=== PATIENT | male | born 1975 | race Caucasian/White ===

== ENCOUNTER 2017-11-23 20:08 | Emergency (ER) | payer BC ==
[~2017-11-23] VITALS: Ht 180.3 cm; Wt 65.9 kg
[2017-11-23 20:12] VITALS: TEMP 98
[2017-11-23 20:57] LABS: BASO # 0.1 (0.0-0.2); BASO % 0.5 % (0.0-2.0); GRAN # 8.7 (1.4-6.5); GRAN % 86.1 % (42.2-75.2); HEMATOCRIT 48.5 % (42.0-52.0); HEMOGLOBIN 17.1 g/dl (13.5-18.0); LYMPH # 0.6 (1.2-3.4); MEAN CELL VOLUME 92 fl (80.0-100.0); MEAN CORPUSCULAR HEMOGLOBIN 32 pg (27.0-31.0); MEAN CORPUSCULAR HGB CONC 35 g/dl (33.0-37.0); MEAN PLATELET VOLUME 10.6 fl (7.4-10.4); MONO # 0.7 (0.1-0.6); PLATELET COUNT 103 K/mm3 (130-400); RED BLOOD COUNT 5.27 M/mm3 (4.20-5.60); REDCELL DISTRIBUTION WIDTH-CV 12.1 % (11.5-14.5)
[2017-11-23 21:10] LABS: ALBUMIN 4.3 gm/dL (3.5-5.0); BILIRUBIN,TOTAL 2.1 mg/dL (0.0-1.0); C-REACTIVE PROTEIN 3.9 mg/dL (0.0-0.9); CALCIUM 9.8 mg/dL (8.4-10.2); CREATININE, serum 0.49 mg/dL (0.66-1.25); TOTAL PROTEIN 8.1 gm/dL (6.4-8.2)
[2017-11-23 21:48] LABS: COLLECTION METHOD CLEAN CATCH
[2017-11-23 21:57] LABS: MUCOUS Present /lpf; PH 6 (5-8); SQUAMOUS EPITHELIAL 0-2 /hpf; URINE APPEARANCE Hazy; URINE BACTERIA None Seen /hpf; URINE BILIRUBIN Negative (NEGATIVE); URINE BLOOD 1+ (NEGATIVE); URINE COLOR Amber; URINE GLUCOSE 1+ (NEGATIVE); URINE KETONE 1+ (NEGATIVE); URINE LEUKOCYTE ESTERASE Negative (NEGATIVE); URINE NITRATE Negative (NEGATIVE); URINE PROTEIN(semi-quant) 3+ (NEGATIVE)
[2017-11-23 23:54] VITALS: BP 137/94; PULSE 103
== END 2017-11-23 23:39 | disposition short-term general hospital (02) ==
LOC: COL.ER 20:08
PROVIDERS: Family Medicine
DX: K85.90 Acute pancreatitis without necrosis or infection, unspecified (principal)
CPT/HCPCS: J1170; J2060; J2405; J7030; J7120

== ENCOUNTER 2019-07-12 03:46 | Inpatient (IN) | payer OTHER ==
[~2019-07-12] VITALS: Ht 182.9 cm; Wt 66.5 kg
[2019-07-12 04:19] LABS: BASO # 0.1 (0.0-0.2); BASO % 0.4 % (0.0-2.0); GRAN # 11.8 (1.4-6.5); GRAN % 85.4 % (42.2-75.2); HEMATOCRIT 46.5 % (42.0-52.0); HEMOGLOBIN 15.5 g/dl (13.5-18.0); LYMPH # 0.8 (1.2-3.4); LYMPH % 5.7 % (20.0-51.0); MEAN CELL VOLUME 96 fl (80.0-100.0); MEAN CORPUSCULAR HEMOGLOBIN 32 pg (27.0-31.0); MEAN CORPUSCULAR HGB CONC 33 g/dl (33.0-37.0); MEAN PLATELET VOLUME 10.8 fl (7.4-10.4); MONO # 1.1 (0.1-0.6); PLATELET COUNT 196 K/mm3 (130-400); RED BLOOD COUNT 4.83 M/mm3 (4.20-5.60); REDCELL DISTRIBUTION WIDTH-CV 12.1 % (11.5-14.5)
[2019-07-12 04:27] LABS: ALBUMIN 4.9 gm/dL (3.5-5.0); BILIRUBIN,TOTAL 1.7 mg/dL (0.0-1.0); CALCIUM 9.6 mg/dL (8.4-10.2); CREATININE, serum 0.41 (0.66-1.25); POTASSIUM 3.7 mmol/L (3.4-5.0); TOTAL PROTEIN 8.1 gm/dL (6.4-8.2)
--- NOTE | 2019-07-12 08:31 | NUR ---
Pt arrived to room 352, he is A/O x4. He is accompanied by his father. Pt currently unable to get comfortable d/t pain 09/07, pt reports pain has improved but has been unrelieved with the dialuadid. Pt endorses nausea at this time, no emesis. Pt requesting to drink water, POC discussed with patient. He will remain NPO. IVF started into LFA. No other needs at this time. Call light within reach. Will continue to monitor.
[2019-07-12 09:54] VITALS: BP 159/98; PULSE 56; TEMP 97.6
--- NOTE | 2019-07-12 12:07 | NUR ---
Initial visit; Patient and family member thanked [facility] Specialist for looking in on him and offering spiritual carel
[2019-07-12 12:44] VITALS: BP 142/83; PULSE 72; TEMP 98.6
[2019-07-12 15:59] VITALS: BP 152/97; PULSE 84; TEMP 98.7
--- NOTE | 2019-07-12 16:41 | NUR ---
ELIDA met with the patient to complete initial intake. The patient lives in [place] with his parents. The patient denies DME usage and reports independence with ADLs. The patient does not have a PCP and was not interested in list of [facility] providers. The [place] [facility] The patient does not have advanced directives in the EMR and was not interested in a DPOA-HC form. The patient plans to return home at discharge. There are no additional needs at this time.
--- NOTE | 2019-07-12 18:28 | NUR ---
Pt had uneventful day. Continued to report pain that remained "about the same" with doses of dilaudid. No nausea or vomitting reported. IVF infusing without complications. No needs at this time. Call light within reach.
--- NOTE | 2019-07-12 19:20 | NUR ---
Received report from Meri. Seen patient awake, lying on bed. Patient states he has pain on left side with pain score of 7/10. PRN Dilaudid to be given. With IVF at left forearm infusing NS at 125ml/hr. Call light within reach.
[2019-07-12 19:39] VITALS: BP 145/95; PULSE 71; TEMP 99
[2019-07-12 23:19] VITALS: BP 147/97; PULSE 79; TEMP 98.8
[2019-07-13 03:44] VITALS: BP 136/96; PULSE 80; TEMP 98.9
--- NOTE | 2019-07-13 05:46 | NUR ---
Patient had an uneventful day. Still reports pain in his left upper quadrant. Dilaudid PRN given. Will endorse to day shift nurse.
[2019-07-13 07:21] LABS: BASO % 0.3 % (0.0-2.0); EOS % 0.3 % (0-4.0); GRAN # 8.5 (1.4-6.5); HEMATOCRIT 43.5 % (42.0-52.0); HEMOGLOBIN 14.4 g/dl (13.5-18.0); LYMPH # 1.2 (1.2-3.4); LYMPH % 10.4 % (20.0-51.0); MEAN CELL VOLUME 95 fl (80.0-100.0); MEAN CORPUSCULAR HEMOGLOBIN 32 pg (27.0-31.0); MEAN CORPUSCULAR HGB CONC 33 g/dl (33.0-37.0); MEAN PLATELET VOLUME 11.5 fl (7.4-10.4); MONO # 1.3 (0.1-0.6); MONO % 11.3 % (1.7-9.3); PLATELET COUNT 164 K/mm3 (130-400); RED BLOOD COUNT 4.57 M/mm3 (4.20-5.60); REDCELL DISTRIBUTION WIDTH-CV 12.4 % (11.5-14.5)
[2019-07-13 07:31] LABS: ALBUMIN 3.8 gm/dL (3.5-5.0); BILIRUBIN,TOTAL 1.2 mg/dL (0.0-1.0); CALCIUM 8.6 mg/dL (8.4-10.2); CHOLESTEROL RISK RATIO 2.4; CREATININE, serum 0.41 (0.66-1.25); POTASSIUM 3.4 mmol/L (3.4-5.0); TOTAL PROTEIN 6.6 gm/dL (6.4-8.2)
[2019-07-13 07:38] VITALS: BP 153/98; PULSE 81; TEMP 99.1
[2019-07-13 11:41] VITALS: BP 133/85; PULSE 74; TEMP 98.2
[2019-07-13 17:13] VITALS: BP 135/97; PULSE 82; TEMP 98.1
--- NOTE | 2019-07-13 18:40 | NUR ---
Received report from Meri. Seen patient awake, lying on bed. Patient states his pain right now is bearable. He is about to take his dinner. With ongoing IVF NS 1 liter at 125ml/hr. Will continue to monitor.
--- NOTE | 2019-07-13 19:04 | NUR ---
Patient is Alert and Oriented. Diet advanced to Clear liquid from NPO, diet was tolerated well. Pain is resting in bed at the moment.
[2019-07-13 19:11] VITALS: BP 133/92; PULSE 86; TEMP 99.6
--- NOTE | 2019-07-13 19:23 | NUR ---
Pt states he tolerated clear liquids without issue. No N/V. He states pain did not increase after eating. IVF infusing without complications. No needs a tthis time. Call light within reach.
[2019-07-13 23:02] VITALS: BP 141/99; PULSE 73; TEMP 99.7
[2019-07-14 03:09] VITALS: BP 152/97; PULSE 87; TEMP 99.4
[2019-07-14 06:03] LABS: BASO % 0.3 % (0.0-2.0); EOS # 0.1 (0.0-0.7); EOS % 1.2 % (0-4.0); GRAN # 5.5 (1.4-6.5); GRAN % 63.7 % (42.2-75.2); HEMATOCRIT 41.5 % (42.0-52.0); HEMOGLOBIN 13.7 g/dl (13.5-18.0); LYMPH # 1.7 (1.2-3.4); LYMPH % 19.4 % (20.0-51.0); MEAN CELL VOLUME 96 fl (80.0-100.0); MEAN CORPUSCULAR HEMOGLOBIN 32 pg (27.0-31.0); MEAN CORPUSCULAR HGB CONC 33 g/dl (33.0-37.0); MEAN PLATELET VOLUME 11.2 fl (7.4-10.4); MONO # 1.3 (0.1-0.6); MONO % 14.8 % (1.7-9.3); PLATELET COUNT 162 K/mm3 (130-400); RED BLOOD COUNT 4.33 M/mm3 (4.20-5.60); REDCELL DISTRIBUTION WIDTH-CV 12.1 % (11.5-14.5)
[2019-07-14 06:12] LABS: ALBUMIN 3.6 gm/dL (3.5-5.0); BILIRUBIN,TOTAL 1.1 mg/dL (0.0-1.0); CALCIUM 8.4 mg/dL (8.4-10.2); CREATININE, serum 0.48 (0.66-1.25); TOTAL PROTEIN 6.4 gm/dL (6.4-8.2)
--- NOTE | 2019-07-14 06:28 | NUR ---
Patient had mild to moderate pain with the highest of 6/10. Tried oral Roxicodone for pain instead of Dilaudid. No other complains made for tonight aside from his pain. Will endorse to day shift nurse.
[2019-07-14 09:20] VITALS: BP 143/108; PULSE 86; TEMP 99
--- NOTE | 2019-07-14 09:39 | NUR ---
Pt assessment completed and charted. Medications administered per JUL. Pt requesting pain medication. Received PRN [place] per JUL. Pt has LFA IV w/ NS at 125ml/hr and placed on potassium protocol. 10MEQ bag running w/o complications. Pt rating LQ abdominal pain at 4-5/10. Denies SOB, N/V/D. Tolerating clear liquids well. Pt on room air, breathing is even and unlabored. HR RRR. No other concerns at this time.
[2019-07-14] MEDS ORDERED: ZOFRAN 4MG T4 MG/TAB PO (10:14)
[2019-07-14] MEDS ORDERED: ROXICODONE 55 MG/TAB PO (10:15)
[2019-07-14] MEDS ORDERED: K-TAB20 PO (10:16)
[2019-07-14 11:28] VITALS: BP 140/98; PULSE 74; TEMP 99.1
--- NOTE | 2019-07-14 11:47 | NUR ---
Pt discharge instructions discussed and reviewed with patient who verbalized understanding. LFA IV dc'd w/ catheter tip intact and no complications. Pt denies further needs or questions. Pt escorted out via WC by KRYSTIN Moses.
== END 2019-07-14 11:55 | disposition home or self-care (01) | DRG 440 ==
LOC: COL.ER 03:46 → MEDICAL 05:10
PROVIDERS: Emergency Medicine; Physician Assistant; ADMIT Hospitalist
DX: K85.90 Acute pancreatitis without necrosis or infection, unspecified (principal); F17.210 Nicotine dependence, cigarettes, uncomplicated
CPT/HCPCS: OP; 99222-AI; 99232-AI; 99238; C9113; J1170; J1650; J2405; J3010; J3480; J7030; Q9967

== ENCOUNTER 2019-11-14 18:31 | Inpatient (IN) | payer OTHER ==
[~2019-11-14] VITALS: Ht 182.9 cm; Wt 66.9 kg
[~2019-11-14 18:31] MED LIST: K-TAB20 PO; ROXICODONE 55 MG/TAB PO; ZOFRAN 4MG T4 MG/TAB PO
[2019-11-14 19:07] LABS: BASO # 0.1 (0.0-0.2); BASO % 0.6 % (0.0-2.0); EOS % 0.2 % (0-4.0); GRAN # 8.8 (1.4-6.5); GRAN % 75.2 % (42.2-75.2); HEMATOCRIT 45.6 % (42.0-52.0); HEMOGLOBIN 15.6 g/dl (13.5-18.0); LYMPH # 1.3 (1.2-3.4); MEAN CELL VOLUME 95 fl (80.0-100.0); MEAN CORPUSCULAR HEMOGLOBIN 33 pg (27.0-31.0); MEAN CORPUSCULAR HGB CONC 34 g/dl (33.0-37.0); MONO # 1.5 (0.1-0.6); MONO % 12.7 % (1.7-9.3); PLATELET COUNT 223 K/mm3 (130-400); RED BLOOD COUNT 4.78 M/mm3 (4.20-5.60); REDCELL DISTRIBUTION WIDTH-CV 11.9 % (11.5-14.5)
[2019-11-14 19:19] LABS: ALANINE AMINOTRANSFERASE 42 U/L (4-49); ALBUMIN 4.6 gm/dL (3.5-5.0); ALKALINE PHOSPHATASE 108 U/L (50-136); ANION GAP 15 mmol/L (7-16); AST,SGOT 72 U/L (15-37); BILIRUBIN,TOTAL 1.7 mg/dL (0.0-1.0); BLOOD UREA NITROGEN 10 mg/dL (9-20); CALCIUM 9.4 mg/dL (8.4-10.2); CARBON DIOXIDE 23 mmol/L (22-30); CHLORIDE 97 mmol/L (98-107); CREATININE, serum 0.54 (0.66-1.25); GLUCOSE 114 mg/dL (74-106); LIPASE 1936 U/L (23-300); POTASSIUM 3.7 mmol/L (3.4-5.0); SODIUM 134 mmol/L (137-145); TOTAL PROTEIN 7.8 gm/dL (6.4-8.2)
[2019-11-14 19:24] LABS: C-REACTIVE PROTEIN < 0.5 mg/dL (0.0-0.9)
--- NOTE | 2019-11-14 21:50 | NUR ---
Received patient via wheelchair from ER. He is alert and oriented. With INT on left AC. Patient reports pain on his abdomen on left upper quadrant and it radiates on his back. He was given Dilaudid in the ER at 2123H and states pain at 6/10. Informed patient he has Dilaudid every 2 hours PRN for pain and next dose can be given at 2323H. With INT on right AC. Instructed patient he's on NPO. Assessment and Med rec done.
[2019-11-14 22:12] VITALS: BP 154/87; PULSE 75; TEMP 98.2
[2019-11-14] MEDS ORDERED: ADVIL200 MG PO (22:28)
[2019-11-14 23:21] VITALS: BP 138/76; PULSE 66; TEMP 98.3
--- NOTE | 2019-11-14 23:30 | NUR ---
Patient verbalizes if he can have Nicotine patch. Called Dr. Persaud and he ordered for Nicotine patch 14mg. Patient's pain right now is 7/10. Dilaudid PRN given.
--- NOTE | 2019-11-15 01:41 | NUR ---
Patient complains of pain on his left side abdomen, 8/10. He said he feels like Dilaudid is not working and he is teary eyed because of pain. He asked if we can increase the dosage or frequency. Called Dr. Persaud and he ordered Dilaudid 1mg Q2 PRN. Informed patient and he was satisfied with that.
[2019-11-15 03:53] VITALS: BP 153/91; PULSE 82; TEMP 98.3
--- NOTE | 2019-11-15 06:12 | NUR ---
Patient still has a constant pain. Dilaudid dosage was increased and patient requesting for it every 2 hourse. Maintained on NPO. Will endorse to day shift nurse.
[2019-11-15 07:24] VITALS: BP 146/88; PULSE 77; TEMP 98.3
[2019-11-15 07:39] LABS: HEMATOCRIT 43.9 % (42.0-52.0); HEMOGLOBIN 14.9 g/dl (13.5-18.0); MEAN CELL VOLUME 95 fl (80.0-100.0); MEAN CORPUSCULAR HEMOGLOBIN 32 pg (27.0-31.0); MEAN CORPUSCULAR HGB CONC 34 g/dl (33.0-37.0); MEAN PLATELET VOLUME 10.5 fl (7.4-10.4); PLATELET COUNT 196 K/mm3 (130-400); RED BLOOD COUNT 4.62 M/mm3 (4.20-5.60)
[2019-11-15 07:55] LABS: CALCIUM 8.9 mg/dL (8.4-10.2); CREATININE, serum 0.41 (0.66-1.25); POTASSIUM 4.3 mmol/L (3.4-5.0)
[2019-11-15 08:32] LABS: BAND 16 % (0-10); BASOPHIL 2 % (0-2); EOSINOPHIL 1 % (0-4); LYMPHOCYTE 2 % (20.0-51.0); NEUTROPHILS 73 % (42.0-75.2); PLATELET ESTIMATE NORMAL (NORMAL)
--- NOTE | 2019-11-15 10:45 | NUR ---
ELIDA met with the patient to complete initial intake. The patient lives in [place] with his father, Samson. The patient denies DME use and is independent with ADLs. The patient was seen at [facility] in the past and was agreeable to set up an appointment for a follow-up there. The patient receives medications from [facility] with no difficulties. The patient does not have a DPOA-HC and was not interested a form. The patient plans to return home at discharge. ELIDA contacted [facility] to set up appointment. The appointment is Wednesday, 11/20 at 1500. ELIDA faxed HNP and labs to [facility]. The patient is self-pay. Per Shabnam Fall with finance, the patient's father is assisting with providing information to complete the financial assistance application. There are no additional needs at this time.
[2019-11-15 11:41] VITALS: BP 140/92; PULSE 84; TEMP 98.3
--- NOTE | 2019-11-15 11:54 | NUR ---
First visit from the chapalin. No needs right now.
[2019-11-15 15:43] VITALS: BP 132/85; PULSE 85; TEMP 98.3
[2019-11-15 19:28] VITALS: BP 144/90; PULSE 89; TEMP 99.1
--- NOTE | 2019-11-15 20:00 | NUR ---
Received report from Mariposa. Seen patient awake, sitting in bed. He requested for Dilaudid, reporting pain of 6/10. He states he vomitted as well after eating his dinner. Zofran was given. Instructed patient we need sample of urine for urinalysis and to call us once he urinated already.
[2019-11-15 23:09] VITALS: BP 125/82; PULSE 81; TEMP 98.7
[2019-11-16 00:02] LABS: COLLECTION METHOD CLEAN CATCH
[2019-11-16 00:12] LABS: MUCOUS Present /lpf; PH 7 (5-8); SQUAMOUS EPITHELIAL None Seen /hpf; URINE APPEARANCE Clear; URINE BACTERIA None Seen /hpf; URINE BILIRUBIN Negative (NEGATIVE); URINE BLOOD 1+ (NEGATIVE); URINE COLOR Yellow; URINE GLUCOSE Negative (NEGATIVE); URINE KETONE 1+ (NEGATIVE); URINE LEUKOCYTE ESTERASE Negative (NEGATIVE); URINE NITRATE Negative (NEGATIVE); URINE PROTEIN(semi-quant) Negative (NEGATIVE); URINE RBC 0-2 /hpf
[2019-11-16 04:31] VITALS: BP 124/75; PULSE 79; TEMP 98.7
--- NOTE | 2019-11-16 05:54 | NUR ---
Patient has been asking pain medicine less frequent. He states his pain now is much more tolerable. Latest pain score is 5/10. He requested for Dilaudid. No other complains made aside from his left side abdomen pain. Will endorse to day shift nurse.
[2019-11-16 07:03] LABS: BASO % 0.3 % (0.0-2.0); EOS # 0.4 (0.0-0.7); EOS % 3.9 % (0-4.0); GRAN # 5.8 (1.4-6.5); GRAN % 62.3 % (42.2-75.2); HEMATOCRIT 40.7 % (42.0-52.0); HEMOGLOBIN 13.7 g/dl (13.5-18.0); LYMPH # 1.7 (1.2-3.4); LYMPH % 18.6 % (20.0-51.0); MEAN CELL VOLUME 96 fl (80.0-100.0); MEAN CORPUSCULAR HEMOGLOBIN 33 pg (27.0-31.0); MEAN CORPUSCULAR HGB CONC 34 g/dl (33.0-37.0); MEAN PLATELET VOLUME 11.4 fl (7.4-10.4); MONO # 1.3 (0.1-0.6); MONO % 14.5 % (1.7-9.3); PLATELET COUNT 158 K/mm3 (130-400); RED BLOOD COUNT 4.22 M/mm3 (4.20-5.60)
[2019-11-16 07:09] LABS: ALBUMIN 3.2 gm/dL (3.5-5.0); BILIRUBIN,TOTAL 1.1 mg/dL (0.0-1.0); CALCIUM 8.6 mg/dL (8.4-10.2); CREATININE, serum 0.47 (0.66-1.25); POTASSIUM 3.1 mmol/L (3.4-5.0); TOTAL PROTEIN 6.1 gm/dL (6.4-8.2)
[2019-11-16 07:23] VITALS: BP 125/76; PULSE 82; TEMP 98.1
--- NOTE | 2019-11-16 07:51 | NUR ---
Pt awake and alert this morning upon entry, no C/O pain at this time, talkative and appropriate, shift assessments complete, left Pt call light in reach, bed in lowest position.
--- NOTE | 2019-11-16 09:51 | NUR ---
SW attended clinical rounds with the team. SW will continue to follow to ensure a safe discharge.
[2019-11-16 11:24] VITALS: BP 125/78; PULSE 81; TEMP 98.5
[2019-11-16 16:08] VITALS: BP 132/82; PULSE 85; TEMP 98.3
--- NOTE | 2019-11-16 18:33 | NUR ---
Pt resting in the room today, had some C/O pain earlier in the day and medications were given for relief with good results, Pt tolerating the change in diet from clear liquids to the mechanical soft well, no increase in pain after the change. VS have remained stable.
[2019-11-16 19:39] VITALS: BP 135/91; PULSE 92; TEMP 98
--- NOTE | 2019-11-16 19:45 | NUR ---
Resting in bed. Assessment complete. Lungs clear. Heart sounds normal. Bowels active x4. Pulses strong throughout. No willard anoted. IV right AC without complications. Reports 4/10 left upper quad ABD pain after eating. Provided with PRN dilaudid at patient request. Denies other needs at this time. Call light in reach.
[2019-11-16 23:25] VITALS: BP 140/98; PULSE 81; TEMP 97.9
--- NOTE | 2019-11-16 23:31 | NUR ---
Rating LUQ ABD pain 5/10. Provided PRN dilaudid at patient request. Denies other needs at this time.
--- NOTE | 2019-11-17 02:20 | NUR ---
Resting in bed. Call light in reach.
[2019-11-17 03:30] VITALS: BP 151/100; PULSE 89; TEMP 97.9
--- NOTE | 2019-11-17 03:36 | NUR ---
Reports 11/07 ABD pain. Provided with PRN dilaudid at patient request. Denies other needs. Call light in reach.
[2019-11-17 04:38] VITALS: BP 126/85
--- NOTE | 2019-11-17 06:10 | NUR ---
Patient required x3 doses of dilaudid of pain control throughout night. Otherwise uneventful night. Resting in bed this AM. Call light in reach.
--- NOTE | 2019-11-17 06:45 | NUR ---
awake resting in bed, bedside shift report received from BRIGIDO Marr
[2019-11-17 06:50] LABS: BASO # 0.1 (0.0-0.2); BASO % 0.7 % (0.0-2.0); EOS # 0.3 (0.0-0.7); EOS % 3.6 % (0-4.0); GRAN # 3.9 (1.4-6.5); GRAN % 53.5 % (42.2-75.2); HEMATOCRIT 42.4 % (42.0-52.0); HEMOGLOBIN 14.1 g/dl (13.5-18.0); LYMPH % 27.9 % (20.0-51.0); MEAN CELL VOLUME 97 fl (80.0-100.0); MEAN CORPUSCULAR HEMOGLOBIN 32 pg (27.0-31.0); MEAN CORPUSCULAR HGB CONC 33 g/dl (33.0-37.0); MEAN PLATELET VOLUME 10.6 fl (7.4-10.4); PLATELET COUNT 155 K/mm3 (130-400); RED BLOOD COUNT 4.39 M/mm3 (4.20-5.60); REDCELL DISTRIBUTION WIDTH-CV 11.8 % (11.5-14.5)
--- NOTE | 2019-11-17 06:52 | NUR ---
Reports 6/10 ABD pain and nausea. Provided with PRN dilaudid and zofran.
--- NOTE | 2019-11-17 06:57 | NUR ---
Report given to BRIGIDO Calvo
[2019-11-17 07:00] LABS: CALCIUM 8.9 mg/dL (8.4-10.2); CREATININE, serum 0.53 (0.66-1.25); POTASSIUM 3.3 mmol/L (3.4-5.0)
[2019-11-17 07:49] VITALS: BP 148/96; PULSE 76; TEMP 98.3
--- NOTE | 2019-11-17 08:00 | NUR ---
up and about in room independently, had breakfast and tolerated well, and at this time denies abdominal pain, will monitor, full assessment completed, see interventions for further info
--- NOTE | 2019-11-17 09:54 | NUR ---
Dr Persaud and care team in to see patient
[2019-11-17] MEDS ORDERED: NORCO 325 MG-51 TAB PO ×4 (09:57→15:53)
--- NOTE | 2019-11-17 10:20 | NUR ---
up and about in room independently, continues to deny nausea or abdominal pain, will plan discharge later, IV to INT
[2019-11-17 12:32] VITALS: BP 140/92; PULSE 82; TEMP 98
--- NOTE | 2019-11-17 12:58 | NUR ---
shift report given to BRIGIDO Zambrano
--- NOTE | 2019-11-17 13:29 | NUR ---
The patient is to discharge home today, 11/16 with her father, Samson. There are no additional needs.
--- NOTE | 2019-11-17 13:30 | NUR ---
Discharge paperwork reviewed with patient. Patient verbalized an understanfing to follow doctors orders. IV removed, tip intact, gauze and coban applied. Personal belongings and discharge paperwork with patient. Patient walked independently with nursing staff to vehicle. No further needs expressed from patient.
== END 2019-11-17 13:30 | disposition home or self-care (01) | DRG 440 ==
LOC: COL.ER 18:31 → MEDICAL 20:44
PROVIDERS: Emergency Medicine; Physician Assistant; ADMIT Student in an Organized Health Care Education/Training Program
DX: K85.90 Acute pancreatitis without necrosis or infection, unspecified (principal); F17.210 Nicotine dependence, cigarettes, uncomplicated; E88.89 Other specified metabolic disorders; K82.4 Cholesterolosis of gallbladder; E87.6 Hypokalemia
CPT/HCPCS: OP; 99222-AI; 99232-AI; 99239; G0378; J1170; J1650; J2405; J7030; Q9967

== ENCOUNTER → 2020-07-26 | Emergency (ER) | payer OTHER ==
[~2020-07-26] MED LIST changes: +ADVIL200 MG PO; +NORCO 325 MG-51 TAB PO; +TYLENOL 325MG325 MG PO
== END ==
LOC: COL.ER 01:45
DX: R69 Illness, unspecified (principal)

== ENCOUNTER 2020-09-11 02:01 | Inpatient (IN) | payer MEDICAID, OTHER ==
[~2020-09-11] VITALS: Ht 182.9 cm; Wt 68.2 kg
[2020-09-11] VITALS (10 sets, daily range): BP systolic 135–169; BP diastolic 90–100; PULSE 81–90; TEMP 97.8–99
[~2020-09-11 02:01] MED LIST changes: -TYLENOL 325MG325 MG PO
[2020-09-11 02:22] LABS: BASO # 0.1 (0.0-0.2); BASO % 0.5 % (0.0-2.0); EOS % 0.2 % (0-4.0); GRAN # 7.1 (1.4-6.5); GRAN % 74.4 % (42.2-75.2); HEMATOCRIT 47.9 % (42.0-52.0); HEMOGLOBIN 15.7 g/dl (13.5-18.0); LYMPH # 1.2 (1.2-3.4); LYMPH % 12.3 % (20.0-51.0); MEAN CELL VOLUME 96 fl (80.0-100.0); MEAN CORPUSCULAR HEMOGLOBIN 32 pg (27.0-31.0); MEAN CORPUSCULAR HGB CONC 33 g/dl (33.0-37.0); MEAN PLATELET VOLUME 9.9 fl (7.4-10.4); MONO # 1.2 (0.1-0.6); MONO % 12.2 % (1.7-9.3); PLATELET COUNT 202 K/mm3 (130-400); RED BLOOD COUNT 4.98 M/mm3 (4.20-5.60); REDCELL DISTRIBUTION WIDTH-CV 13.3 % (11.5-14.5)
[2020-09-11 02:33] LABS: ALBUMIN 4.9 gm/dL (3.5-5.0); BILIRUBIN,TOTAL 1.4 mg/dL (0.0-1.0); CALCIUM 9.4 mg/dL (8.4-10.2); CREATININE, serum 0.53 (0.66-1.25); POTASSIUM 3.2 mmol/L (3.4-5.0); TOTAL PROTEIN 8.9 gm/dL (6.4-8.2)
[2020-09-11 12:31] LABS: CALCIUM 8.8 mg/dL (8.4-10.2); CREATININE, serum 0.49 (0.66-1.25); POTASSIUM 4.1 mmol/L (3.4-5.0)
[2020-09-12 02:06] VITALS: BP 131/86; PULSE 72; TEMP 98.6
[2020-09-12 04:00] VITALS: BP 137/89; PULSE 71; TEMP 98
[2020-09-12 07:22] VITALS: BP 117/89; PULSE 85; TEMP 98
[2020-09-12 10:50] VITALS: BP 132/86; PULSE 86; TEMP 98.2
[2020-09-12] MEDS ORDERED: TYLENOL 325MG325 MG PO (15:15)
[2020-09-12] MEDS ORDERED: ROXICODONE 55 MG/TAB PO (15:15)
[2020-09-12] MEDS ORDERED: ZOFRAN 4MG T4 MG/TAB PO (15:16)
== END 2020-09-12 16:23 | disposition home or self-care (01) | DRG 440 ==
LOC: COL.ER 02:01 → MEDICAL 04:23
PROVIDERS: Emergency Medicine; Student in an Organized Health Care Education/Training Program; ADMIT Internal Medicine
DX: K85.20 Alcohol induced acute pancreatitis without necrosis or infection (principal); K86.0 Alcohol-induced chronic pancreatitis; F10.10 Alcohol abuse, uncomplicated; E87.6 Hypokalemia; K76.0 Fatty (change of) liver, not elsewhere classified; K52.9 Noninfective gastroenteritis and colitis, unspecified; K82.8 Other specified diseases of gallbladder; F17.210 Nicotine dependence, cigarettes, uncomplicated
CPT/HCPCS: 99222-AI; 99239; J1170; J1650; J2270; J2405; J3411; J3480; J7030; J7120; Q9967

== ENCOUNTER 2021-08-24 22:11 | Emergency (ER) | payer MEDICAID ==
[~2021-08-24] VITALS: Ht 180.3 cm; Wt 68.2 kg
[~2021-08-24 22:11] MED LIST changes: +TYLENOL 325MG325 MG PO
[2021-08-24 22:29] VITALS: TEMP 98.8
[2021-08-24 23:06] LABS: BASO # 0.1 K/mm3 (0.0-0.2); BASO % 1.6 % (0.0-2.0); EOS % 0.3 % (0.0-4.0); GRAN # 3.4 K/mm3 (1.4-6.5); GRAN % 52.5 % (42.2-75.2); HEMATOCRIT 44.3 % (42.0-52.0); HEMOGLOBIN 15.4 g/dl (13.5-18.0); LYMPH # 2.1 K/mm3 (1.2-3.4); LYMPH % 32.8 % (20.0-51.0); MEAN CELL VOLUME 94 fl (80.0-100.0); MEAN CORPUSCULAR HEMOGLOBIN 33 pg (27-31); MEAN CORPUSCULAR HGB CONC 35 g/dl (33.0-37.0); MEAN PLATELET VOLUME 9.7 fl (7.4-10.4); MONO # 0.8 K/mm3 (0.1-0.6); MONO % 12.6 % (1.7-9.3); PLATELET COUNT 169 K/mm3 (130-400); RED BLOOD COUNT 4.71 M/mm3 (4.20-5.60); REDCELL DISTRIBUTION WIDTH-CV 12.8 % (11.5-14.5)
[2021-08-24 23:20] LABS: ALANINE AMINOTRANSFERASE 90 U/L (0-55); ALBUMIN 4.2 gm/dL (3.5-5.0); ALKALINE PHOSPHATASE 138 U/L (40-150); ANION GAP 16 mmol/L (7-16); AST,SGOT 400 U/L (5-34); BLOOD UREA NITROGEN 6 mg/dL (9-21); CALCIUM 8.4 mg/dL (8.4-10.2); CARBON DIOXIDE 27 mmol/L (22-29); CHLORIDE 103 mmol/L (98-107); CREATININE, serum 0.69 mg/dL (0.72-1.25); GLUCOSE 113 mg/dL (70-99); MAGNESIUM 1.8 mg/dL (1.6-2.6); SODIUM 146 mmol/L (136-145); TOTAL PROTEIN 7.6 gm/dL (6.2-8.1)
[2021-08-24 23:36] LABS: ACETAMINOPHEN < 1.0 ug/mL (10-30); SALICYLATE < 5.0 mg/dL (15.0-30.0)
[2021-08-24 23:37] LABS: ALCOHOL(ethanol),MEDICAL 488 mg/dL (0-10)
[2021-08-24 23:39] LABS: TSH w REFLEX 2.051 uIU/mL (0.350-4.940)
[2021-08-25 01:48] VITALS: BP 108/75; PULSE 111
== END 2021-08-25 02:08 | disposition home or self-care (01) ==
LOC: COL.ER 22:11
PROVIDERS: Emergency Medicine
DX: F10.129 Alcohol abuse with intoxication, unspecified (principal); R74.01 Elevation of levels of liver transaminase levels; Y90.8 Blood alcohol level of 240 mg/100 ml or more
CPT/HCPCS: J3411

== ENCOUNTER 2021-10-27 01:58 | Observation (INO) | payer MEDICAID ==
[2021-10-27] VITALS (8 sets, daily range): BP systolic 125–143; BP diastolic 90–99; PULSE 68–85; TEMP 97.5–98.7
[~2021-10-27] VITALS: Ht 182.9 cm; Wt 74.7 kg
[~2021-10-27 01:58] MED LIST changes: +ATIVAN2 MG PO
[2021-10-27 02:43] LABS: BASO # 0.1 K/mm3 (0.0-0.2); EOS # 0.1 K/mm3 (0.0-0.7); EOS % 0.8 % (0.0-4.0); GRAN # 5.1 K/mm3 (1.4-6.5); HEMATOCRIT 41.7 % (42.0-52.0); HEMOGLOBIN 14.6 g/dl (13.5-18.0); LYMPH # 1.5 K/mm3 (1.2-3.4); LYMPH % 18.5 % (20.0-51.0); MEAN CELL VOLUME 95 fl (80.0-100.0); MEAN CORPUSCULAR HEMOGLOBIN 33 pg (27-31); MEAN CORPUSCULAR HGB CONC 35 g/dl (33.0-37.0); MEAN PLATELET VOLUME 10.8 fl (7.4-10.4); MONO # 1.2 K/mm3 (0.1-0.6); MONO % 15.3 % (1.7-9.3); PLATELET COUNT 203 K/mm3 (130-400); RED BLOOD COUNT 4.38 M/mm3 (4.20-5.60); REDCELL DISTRIBUTION WIDTH-CV 11.7 % (11.5-14.5)
[2021-10-27 03:08] LABS: BILIRUBIN,TOTAL 1.1 mg/dL (0.2-1.2); CALCIUM 8.5 mg/dL (8.4-10.2); POTASSIUM 4.6 mmol/L (3.5-4.5); TOTAL PROTEIN 7.8 gm/dL (6.2-8.1)
[2021-10-27 03:32] LABS: CREATININE, serum 0.72 mg/dL (0.72-1.25)
[2021-10-27] MEDS ORDERED: LEXAPRO20 MG PO (04:28)
--- NOTE | 2021-10-27 05:09 | NUR ---
Patient arrived to the hospital, alert and oriented x 4, VSS. Tired. Rating pain as 7/10 in his abdomen. Started NS at 200 ml/hr and a dose of MG. Telemetry in place. Assessment intake completed.
--- NOTE | 2021-10-27 06:48 | NUR ---
Patient is resting right now, continue receiving fluids 200 ml/hr. Report will be given to day RN.
--- NOTE | 2021-10-27 07:10 | NUR ---
THE PATIENT IS AWAKE IN BED. STATES HE IS IN PAIN A 12/07. REQUESTING PAIN MEDICATIONS SOON AVAILABLE. NO OTHER CONCERNS AT THIS TIME.
--- NOTE | 2021-10-27 08:14 | NUR ---
THE PATIENT VSS. SLIGHTLY ELEVATED BP. NO MARKED TREMORS, MILDLY FELT BY EXAMINER. PT DENIES NAUSEA, JUST STATES HE HAS HUNGER PANGS. THE PATIENT REQUESTED PAIN MEDCATIONS, THEY WERE DOSED PER MAR. NO OTHER CONCERNS AT THIS TIME.
--- NOTE | 2021-10-27 11:52 | NUR ---
SW met with patient to complete intake. Patient provides that he lives in [facility] with his Robert [phone]. Patient states he does not utilize DME and is independent with ADL's. PCP is Dr. Nicolas, and pharmacy is [facility]. Patient states that he does not have anyone appointed as his DPOA/HC and does not wish to appoint anyone at this time. Patient states that his plan is to return to [place]. Patient provided that he is receiving excellent care and did not have any questions, comments, or concerns at this time. SW will continue to follow. DC plan: home
--- NOTE | 2021-10-27 18:54 | NUR ---
PT HAD UNEVENTFUL DAY. SCORED VERY LOW ON CIWA. THE PATIENT HAS BEEN COMPLAINING OF RUQ PAIN FROM THE ACUTE PANCREATITIS. MORPHINE GIVEN PRN PER JUL. NO OTHER CONCERNS. REPORT GIVEN TO BRIGIDO BENNETT.
--- NOTE | 2021-10-27 20:00 | NUR ---
Patient is resting in bed, alert and oriented x 4, VSS, Continues with pain in his abdomen. PRN provided. Receiving NS AT 200ml/hr. Adjusted per orders to 100ml/hr. Telemetry in place, NSR. Assessment completed. No other needs at this time. Call light within reach.
[2021-10-28] VITALS (12 sets, daily range): BP systolic 123–157; BP diastolic 91–104; PULSE 64–85; TEMP 97.6–99
--- NOTE | 2021-10-28 06:18 | NUR ---
Patient has had a calm night. CIWA 3. Continues with pain in the abdomen. PRN provided. No other issues along the night. Report will be given to day RN.
[2021-10-28 06:31] LABS: BASO # 0.1 K/mm3 (0.0-0.2); BASO % 0.8 % (0.0-2.0); EOS # 0.1 K/mm3 (0.0-0.7); EOS % 1.7 % (0.0-4.0); GRAN # 3.8 K/mm3 (1.4-6.5); GRAN % 56.7 % (42.2-75.2); HEMATOCRIT 39.8 % (42.0-52.0); HEMOGLOBIN 13.5 g/dl (13.5-18.0); LYMPH # 1.8 K/mm3 (1.2-3.4); LYMPH % 26.5 % (20.0-51.0); MEAN CELL VOLUME 98 fl (80.0-100.0); MEAN CORPUSCULAR HEMOGLOBIN 33 pg (27-31); MEAN CORPUSCULAR HGB CONC 34 g/dl (33.0-37.0); MEAN PLATELET VOLUME 10.1 fl (7.4-10.4); MONO # 0.9 K/mm3 (0.1-0.6); PLATELET COUNT 184 K/mm3 (130-400); RED BLOOD COUNT 4.08 M/mm3 (4.20-5.60); REDCELL DISTRIBUTION WIDTH-CV 11.5 % (11.5-14.5)
[2021-10-28 06:59] LABS: ALBUMIN 3.3 gm/dL (3.5-5.0); CALCIUM 8.2 mg/dL (8.4-10.2); CREATININE, serum 0.6 mg/dL (0.72-1.25); MAGNESIUM 1.7 mg/dL (1.6-2.6); PHOSPHOROUS 2.1 mg/dL (2.3-4.7); POTASSIUM 3.1 mmol/L (3.5-4.5)
--- NOTE | 2021-10-28 08:15 | NUR ---
PT UP TO BATHROOM AND THEN BACK TO BED. PT ON ROOM AIR. PT STATES THAT HE IS NOT HAVING ANY N/V THIS AM. PT IS A&OX4. PT DOES HAVE VISIBLE HAND TREMORS. PT IS CALM AND STATES THAT HE THINKS HE IS READY TO TRY TO EAT SOME "NORMAL" FOOD. PT STATES NO PAIN OR NEEDS AT THIS TIME. "I MIGHT NEED SOMETHING LATER BUT IF I DO THEN I WILL CALL YA." CALL LIGHT IS WITHIN REACH.
[2021-10-28 09:14] LABS: COLLECTION METHOD CLEAN CATCH
[2021-10-28 09:19] LABS: PH 7 (5-8); SQUAMOUS EPITHELIAL None Seen /hpf (0-10); URINE APPEARANCE Clear (CLEAR/HAZY); URINE BACTERIA None Seen /hpf (NONE SEEN); URINE BILIRUBIN Negative (NEGATIVE); URINE BLOOD Negative (NEGATIVE); URINE COLOR Yellow (YELLOW); URINE GLUCOSE Negative (NEGATIVE); URINE KETONE 2+ (NEGATIVE); URINE LEUKOCYTE ESTERASE Negative (NEGATIVE); URINE NITRATE Negative (NEGATIVE); URINE PROTEIN(semi-quant) Negative (NEGATIVE); URINE RBC 0-2 /hpf (0-2); URINE UROBILINOGEN Negative (NEGATIVE)
--- NOTE | 2021-10-28 18:33 | NUR ---
PT LAYING SUPINE IN BED FINISHING DINNER. PT STATES THAT HIS PAIN IS "OK RIGHT NOW" PT STATES THAT HE WILL PROBABLY NEED SOME PAIN MEDICATION LATER. INFORMED PT TO JUST LET US KNOW WHEN HE NEEDED SOMETHING. PT VOICED UNDERSTANDING. PT STATES NO OTHER NEEDS AT THIS TIME. CALL LIGHT IS WITHIN REACH.
--- NOTE | 2021-10-28 22:35 | NUR ---
PATIENT IN BED ON ROOM ENTRY. ALERT AND ORIENTED. HS MEDS PER EMAR. CIWA SCORE OF 3. MILD TREMORS AND ELEVATED BP. C/O MODERATE PAIN TO L ABD AND BACK AND PRN JULIAN WAS GIVEN. IV TO L WRIST CAME OUT, 18 G IV STARTED TO R FA ON FIRST ATTEMPT BY THIS NURSE. IV FLUIDS INFUSING. WAS AT BEDSIDE AND WAS STATING PATIENT NEEDED SOME ATIVAN HIS BP AND TREMORS WERE INCREASING. PT AND FAMILY EDUCATED ON ETOH DETOX PROTOCOL AT THIS TIME, ATIVAN NOT REQUIRED PER PROTOCOL.
[2021-10-29 03:36] VITALS: BP 151/105; PULSE 65; TEMP 98.4
[2021-10-29 06:07] VITALS: BP 125/79; PULSE 64; TEMP 98.2
[2021-10-29 06:16] LABS: BASO % 0.7 % (0.0-2.0); EOS # 0.2 K/mm3 (0.0-0.7); EOS % 3.4 % (0.0-4.0); GRAN # 2.5 K/mm3 (1.4-6.5); GRAN % 45.9 % (42.2-75.2); HEMATOCRIT 38.9 % (42.0-52.0); HEMOGLOBIN 13.1 g/dl (13.5-18.0); LYMPH # 1.8 K/mm3 (1.2-3.4); LYMPH % 34.1 % (20.0-51.0); MEAN CELL VOLUME 97 fl (80.0-100.0); MEAN CORPUSCULAR HEMOGLOBIN 33 pg (27-31); MEAN CORPUSCULAR HGB CONC 34 g/dl (33.0-37.0); MEAN PLATELET VOLUME 10.8 fl (7.4-10.4); MONO # 0.8 K/mm3 (0.1-0.6); MONO % 15.5 % (1.7-9.3); PLATELET COUNT 176 K/mm3 (130-400); REDCELL DISTRIBUTION WIDTH-CV 11.5 % (11.5-14.5)
[2021-10-29 06:44] LABS: ALBUMIN 3.1 gm/dL (3.5-5.0); CREATININE, serum 0.59 mg/dL (0.72-1.25); MAGNESIUM 1.6 mg/dL (1.6-2.6); PHOSPHOROUS 2.2 mg/dL (2.3-4.7)
[2021-10-29 06:47] LABS: POTASSIUM 2.8 mmol/L (3.5-4.5)
[2021-10-29 07:03] LABS: CHOLESTEROL RISK RATIO 3.3
[2021-10-29 08:25] VITALS: BP 156/102; PULSE 80; TEMP 98.2
--- NOTE | 2021-10-29 09:00 | NUR ---
Patient sitting up in bed, eating breakfast, upon entering the room. Patient has noticeable tremors, reports mild anxiety, and is hypertensive. Patient scored 6 on CIWA and given 1mg of ativan per protocol. Patient also requested nicotine patch. Patient is independent in the room, has call light w/in reach, and has been encouraged to call if any needs arise.
[2021-10-29 10:35] VITALS: BP 136/74; PULSE 65; TEMP 98.3
--- NOTE | 2021-10-29 10:44 | NUR ---
Aaliyah: No nondenominational preference Situation: Washery Engineer went to room on rounds Background: PT seem content Assessment: PT appreciated visit Recommendation: Washery Engineer will follow up as needed
[2021-10-29] MEDS ORDERED: FOLIC ACID 11 MG/TA1 PO (10:46)
[2021-10-29] MEDS ORDERED: DUO-KAPS1 CAP PO (10:46)
[2021-10-29] MEDS ORDERED: THIAMINE 1100 MG/TAB PO (10:46)
[2021-10-29 11:40] VITALS: BP 120/86; PULSE 79; TEMP 98.4
[2021-10-29 14:41] VITALS: BP 140/104; PULSE 69; TEMP 98.1
--- NOTE | 2021-10-29 15:14 | NUR ---
Patient discharged home. IV and telemetry removed by this RN. All instructions/education discussed w/ patient. Patient verbalized understanding and signed appropriate discharge paperwork.
[2021-10-29] MEDS ORDERED: NORCO 325 MG-51 TAB PO (16:32)
== END 2021-10-29 15:00 | disposition home or self-care (01) ==
LOC: COL.ER 01:58 → MEDICAL 03:39 → EDBEDREQ 03:52 → MEDICAL 10-29 15:00
PROVIDERS: Emergency Medicine; Internal Medicine Gastroenterology; ADMIT Internal Medicine
DX: K85.90 Acute pancreatitis without necrosis or infection, unspecified (principal); K86.1 Other chronic pancreatitis; F10.139 Alcohol abuse with withdrawal, unspecified; E83.41 Hypermagnesemia; E87.6 Hypokalemia; K76.0 Fatty (change of) liver, not elsewhere classified; F41.9 Anxiety disorder, unspecified; F32.A Depression, unspecified; I08.1 Rheumatic disorders of both mitral and tricuspid valves; F17.210 Nicotine dependence, cigarettes, uncomplicated; Z28.310 Unvaccinated for COVID-19; Z28.9 Immunization not carried out for unspecified reason; Z79.899 Other long term (current) drug therapy
CPT/HCPCS: 99232-AI; C9113; G0378; J1170; J1650; J2060; J2270; J2405; J3475; J7030; Q9967

== ENCOUNTER 2021-11-17 13:03 | Emergency (ER) | payer MEDICAID ==
[~2021-11-17] VITALS: Ht 182.9 cm; Wt 72.7 kg
[~2021-11-17 13:03] MED LIST changes: +DUO-KAPS1 CAP PO; +FOLIC ACID 11 MG/TA1 PO; +LEXAPRO20 MG PO; +THIAMINE 1100 MG/TAB PO
[2021-11-17 14:01] VITALS: TEMP 98.5
[2021-11-17 15:36] LABS: HEMATOCRIT 41.6 % (42.0-52.0); HEMOGLOBIN 14.2 g/dl (13.5-18.0); MEAN CELL VOLUME 95 fl (80.0-100.0); MEAN CORPUSCULAR HEMOGLOBIN 32 pg (27-31); MEAN CORPUSCULAR HGB CONC 34 g/dl (33.0-37.0); MEAN PLATELET VOLUME 11.1 fl (7.4-10.4); PLATELET COUNT 264 K/mm3 (130-400); RED BLOOD COUNT 4.39 M/mm3 (4.20-5.60); REDCELL DISTRIBUTION WIDTH-CV 11.9 % (11.5-14.5)
[2021-11-17 15:47] LABS: C-REACTIVE PROTEIN 6.01 mg/dL (0.00-0.50); CALCIUM 9.4 mg/dL (8.4-10.2); CREATININE, serum 0.7 mg/dL (0.72-1.25); POTASSIUM 3.4 mmol/L (3.5-4.5)
[2021-11-17] MEDS ORDERED: NAPROSYN500 MG PO (16:25)
[2021-11-17 17:13] VITALS: BP 125/81; PULSE 84
[2021-11-17 17:18] LABS: BAND 1 % (0-10); EOSINOPHIL 4 % (0-4); LYMPHOCYTE 22 % (20.0-51.0); NEUTROPHILS 61 % (42.0-75.2); PLATELET ESTIMATE NORMAL (NORMAL)
== END 2021-11-17 17:15 | disposition home or self-care (01) ==
LOC: COL.ER 13:03
PROVIDERS: Emergency Medicine
DX: R23.8 Other skin changes (principal); M13.80 Other specified arthritis, unspecified site; F17.200 Nicotine dependence, unspecified, uncomplicated
CPT/HCPCS: J1885